=== PATIENT | male | born 1975 | race Caucasian/White ===

== ENCOUNTER 2018-12-15 00:02 | Inpatient (IN) | payer MEDICAID ==
[~2018-12-15] VITALS: Ht 170.2 cm; Wt 67.6 kg
[2018-12-15] MEDS ORDERED: ONDANSETRON HCL/PF 4 MG/2 ML VIAL ONE ×2 (00:21→01:31)
[2018-12-15] MEDS ORDERED: NALOXONE PREFILLED SYRINGE 2 MG/2 ML SYRINGE ONE (00:29)
[2018-12-15] MEDS ORDERED: LEVETIRACETAM (500MG) 1,000 MG in IV NS 0.9% 100 ML IV SCH (00:30)
[2018-12-15] MEDS ORDERED: NALOXONE HCL 0.4 MG/ML AMPUL IV ONE (00:30)
[2018-12-15] MEDS ORDERED: ONDANSETRON HCL/PF - ER 4 MG/2 ML VIAL IV ONE ×2 (00:30→01:30)
[2018-12-15 00:40] LABS: BASOPHILS # (AUTO) 0.1 /CMM (0.0-0.2); BASOPHILS % (AUTO) 1.8 % (0.0-2.0); EOSINOPHILS % (AUTO) 3.2 % (0.0-6.0); HEMATOCRIT 36 % (39-51); HEMOGLOBIN 12.9 g/dL (13.5-17.5); LYMPHOCYTES # (AUTO) 2.3 /CMM (0.8-4.8); LYMPHOCYTES % (AUTO) 27.7 % (20.0-44.0); MEAN CORPUSCULAR HGB CONC 36 g/dl (31.0-36.0); MEAN CORPUSCULAR VOLUME 95 fL (80-96); MONOCYTES # (AUTO) 0.5 /CMM (0.1-1.30); MONOCYTES % (AUTO) 5.8 % (2.0-12.0); NEUTROPHILS % (AUTO) 61.5 % (43.0-81.0); PLATELET COUNT (AUTO) 280 /CMM (150-450); RED BLOOD CELL COUNT(AUTO) 3.79 MIL/uL (4.5-6.0); WHITE BLOOD COUNT (AUTO) 8.1 K/uL (4.3-11.0)
[2018-12-15 01:03] LABS: MAGNESIUM 1.5 mg/dL (1.8-2.4)
[2018-12-15] MEDS ORDERED: LEVETIRACETAM (500MG) 500 MG/5 ML VIAL IV ONE (01:09)
[2018-12-15 01:20] LABS: CALCIUM, SERUM 8.5 mg/dL (8.5-10.1); CARBON DIOXIDE 21 mmol/L (21-32); CHLORIDE 100 mmol/L (98-107); CREATININE 0.6 mg/dL (0.6-1.3); GLUCOSE 212 mg/dL (74-106); SODIUM SERUM 137 mmol/L (136-145); UREA NITROGEN, BLOOD 8 mg/dL (7-18)
[2018-12-15 01:22] LABS: POTASSIUM 2.8 mmol/L (3.5-5.1)
[2018-12-15 01:26] LABS: ALBUMIN 3.3 g/dL (3.4-5.0); ALKALINE PHOSPHATASE 91 U/L (46-116); BILIRUBIN,DIRECT 0.1 mg/dL (0.0-0.2); BILIRUBIN,TOTAL 0.7 mg/dL (0.2-1.0); TOTAL PROTEIN, SERUM 7.4 g/dL (6.4-8.2)
[2018-12-15] MEDS ORDERED: LACTULOSE 10 G/15 ML UDC (PYXIS) GT ONE (01:30)
[2018-12-15] MEDS ORDERED: LACTULOSE 10 G/15 ML UDC (PYXIS) ONE ×2 (01:49→03:45)
--- NOTE | 2018-12-15 02:12 | NUR ---
CALLED [facility] FOR RADIOLOGY REPORT
[2018-12-15 02:24] LABS: APPEARANCE,URINE Clear (CLEAR); BILIRUBIN,URINE Negative (NEGATIVE); BLOOD, URINE Trace-intact Ery/uL (NEGATIVE); COLOR,URINE Yellow (YELLOW); KETONES,URINE Trace (NEGATIVE); LEUKOCYTE ESTERASE ,URINE Negative (NEGATIVE); NITRITE, URINE Negative (NEGATIVE); PH,URINE 7.5 (5.0-8.0); PROTEIN,URINE 100 mg/dl (NEGATIVE); UGLUCOSE 100 MG/DL mg/dL (NEGATIVE)
--- NOTE | 2018-12-15 02:28 | NUR ---
PER DR. GUNNAR FLORIAN TO USE NG TUBE.
[2018-12-15 02:48] LABS: BACTERIA,URINE None seen /HPF (None Seen); RBC,URINE 0-2 /HPF (0-2); SQUAMOUS EPITHELIAL CELL,UR Few /HPF (None Seen); WBC,URINE 0-2 /HPF (0-3)
[2018-12-15 02:52] LABS: ASPARTATE AMINOTRANSFERASE 33 U/L (15-37)
--- NOTE | 2018-12-15 02:57 | NUR ---
Joaquin arreola in [facility] - 12/15/18 at 0350 by SEGUNDO PT ASSIGNED [phone]
[2018-12-15] MEDS: Magnesium 1GM/D5W 100ML PREMIX 100 ML IV SCH ×2 (03:00→05:32)
[2018-12-15] MEDS: POTASSIUM CL. PREMIX PERIPHER. 50 ML IV SCH ×6 (03:00→10:31)
[2018-12-15 03:14] LABS: ALANINE AMINOTRANSFERASE 5 U/L (12-78)
[2018-12-15] MEDS ORDERED: POTASSIUM CL. PREMIX PERIPHER. 200 ML ONE (03:34)
[2018-12-15] MEDS ORDERED: Magnesium 1GM/D5W 100ML PREMIX 200 ML IV ONE (03:34)
[2018-12-15] MEDS ORDERED: ONDANSETRON HCL/PF 4 MG/2 ML VIAL IVP PRN (04:00)
[2018-12-15] MEDS ORDERED: ZOLPIDEM TARTRATE 5 MG TABLET PO PRN (04:00)
[2018-12-15] MEDS ORDERED: Z GUARD REMEDY 2 OZ OINT TP PRN (04:00)
--- NOTE | 2018-12-15 04:14 | NUR ---
PT TO 107
--- NOTE | 2018-12-15 04:21 | NUR ---
REPORT GIVEN TO DUNCAN DEL ROSARIO
--- NOTE | 2018-12-15 04:45 | NUR ---
TOÑA RN NOTES ADMITTED A 43Y/O MALE A/O X1 ALTERED AT THIS TIME CAME IN WITH ADM DX OF HEPATIC ENCEPHALOPATHY ,AMMONIA LEVEL 477 ALCOHOL 64 TRP -NEG PTS ON NGT TUBE FOR MEDICATION PTS IS NPO STATUS AT THIS TIME , PTS RECEIVED 2 BAGS OF MAGNESSIUM FOR MAG LEVEL; IS 1.5 , K+ IS 2.8 REPLACING TOTAL OF 6 BAGS , PTS IN ON ROOM AIR ,NO SOB NO DISTRESS NOTED , WILL CONTINUE TO MONITOR PTS.
[2018-12-15 04:59] VITALS: BP 164/100
--- NOTE | 2018-12-15 07:11 | NUR ---
TOÑA RN NOTES PTS AT THIS TIME A/O X3 ABLE TO MAKE NEEDS KNOWN WELL ENDORSE TO RN DAY SHIFT FOR CONTINUITY OF CARE.
--- NOTE | 2018-12-15 07:30 | NUR ---
TOÑA RN AM NOTES RECEIVED PT IN BED, A/O X2-3, MORE AWAKE, ABLE TO MAKE NEEDS KNOWN, ON ROOM AIR, NO SOB, SINUS TACH HR 110 ON TELE MONITOR, DENIES PAIN OR DISCOMFORT, ON NGT TUBE FOR MEDICATION, PLACEMENT CHCEKCED, NPO STATUS FOR NOW, PTS RECEIVED 4/6 BAGS OF KCL, PHARMACY TO BRING IN 2 MORE BAGS TO COMPLETE DOSE. SEE NURSING FLOWSHEET FOR SKIN ISSUES. WILL CONTINUE TO MONITOR PTS.
[2018-12-15 08:00] VITALS: BP_SYST 168; BP_SYST 173; BP_DIAS 119
[2018-12-15 08:37] LABS: BASOPHILS # (AUTO) 0.1 /CMM (0.0-0.2); BASOPHILS % (AUTO) 0.5 % (0.0-2.0); EOSINOPHILS % (AUTO) 0.4 % (0.0-6.0); HEMATOCRIT 38 % (39-51); HEMOGLOBIN 12.8 g/dL (13.5-17.5); MEAN CORPUSCULAR HGB CONC 34 g/dl (31.0-36.0); MEAN CORPUSCULAR VOLUME 95 fL (80-96); MONOCYTES # (AUTO) 1.1 /CMM (0.1-1.30); MONOCYTES % (AUTO) 7.2 % (2.0-12.0); NEUTROPHILS % (AUTO) 78.9 % (43.0-81.0); PLATELET COUNT (AUTO) 303 /CMM (150-450); RED BLOOD CELL COUNT(AUTO) 3.97 MIL/uL (4.5-6.0); WHITE BLOOD COUNT (AUTO) 15.3 K/uL (4.3-11.0)
[2018-12-15] MEDS ORDERED: PROP20TA19 PO (08:37)
[2018-12-15] MEDS ORDERED: METO25TA20 PO (08:37)
[2018-12-15] MEDS ORDERED: ASPI-1169 PO (08:37)
[2018-12-15] MEDS ORDERED: ROSU20TA32 PO (08:37)
[2018-12-15] MEDS ORDERED: THIA100T74 PO (08:37)
[2018-12-15] MEDS ORDERED: LACTULOSE 10 G/15 ML UDC (PYXIS) PO PRN (09:00)
[2018-12-15] MEDS ORDERED: IV NS 0.9% 1,000 ML BAG IV PRN (09:00)
[2018-12-15] MEDS ORDERED: LACTULOSE 10 G/15 ML UDC (PYXIS) PO ONE (09:00)
[2018-12-15 09:03] LABS: ALBUMIN 3.5 g/dL (3.4-5.0); ALKALINE PHOSPHATASE 93 U/L (46-116); BILIRUBIN,TOTAL 0.9 mg/dL (0.2-1.0); CALCIUM, SERUM 8.4 mg/dL (8.5-10.1); CARBON DIOXIDE 20 mmol/L (21-32); CHLORIDE 103 mmol/L (98-107); CREATININE 0.8 mg/dL (0.6-1.3); GLUCOSE 126 mg/dL (74-106); MAGNESIUM 2.2 mg/dL (1.8-2.4); POTASSIUM 3.2 mmol/L (3.5-5.1); SODIUM SERUM 139 mmol/L (136-145); THYROID STIMULATING HORMONE 1.525 uIU/mL (0.358-3.74); TOTAL PROTEIN, SERUM 7.7 g/dL (6.4-8.2); UREA NITROGEN, BLOOD 6 mg/dL (7-18)
[2018-12-15] MEDS: RIFAXIMIN 550 MG TABLET PO SCH ×2 (09:08→17:03)
[2018-12-15] MEDS ORDERED: IV NS 0.9% 1,000 ML IV PRN (09:30)
--- NOTE | 2018-12-15 09:30 | NUR ---
TOÑA RN NOTES DUE MEDS GIVEN. 6 BAGS OF KCL COMPETED.
[2018-12-15 10:22] LABS: ALANINE AMINOTRANSFERASE 16 U/L (12-78)
[2018-12-15 10:56] LABS: ASPARTATE AMINOTRANSFERASE 14 U/L (15-37)
--- NOTE | 2018-12-15 11:40 | NUR ---
TOÑA RN NOTES NGT REMOVED PER MD. PT STARTED ON LOW PROTEIN DIET.
[2018-12-15 12:00] VITALS: BP 149/104
[2018-12-15] MEDS: POTASSIUM CHLORIDE 20 MEQ TAB.PRT.SR PO SCH ×3 (12:07→14:11)
[2018-12-15 16:00] VITALS: BP 151/103
[2018-12-15] MEDS: LACTULOSE 10 G/15 ML UDC (PYXIS) PO SCH (17:02)
[2018-12-15] MEDS: METOPROLOL TARTRATE 25 MG TABLET PO SCH (17:03)
--- NOTE | 2018-12-15 19:28 | NUR ---
TOÑA RN CLOSING NOTES PT RESTING IN BED, A/O X2-3, MORE AWAKE, ABLE TO MAKE NEEDS KNOWN, ON ROOM AIR, NO SOB, SINUS TACH HR 110s ON TELE MONITOR, C/O HEADACHE 10/27, INFORMED FOR PAIN MEDICATIONS, RENAL DIET 60 GMS [STARTED ON LOW PROTEIN], BRP WITH ASSIST, ALL NEEDS MET FOR NOW, SAFETY MEASURES IN PLACE. BED LOW LOCKED, CALL LIGHT WITHIN REACH. WILL ENDORSE TO NEXT SHIFT FOR LISA.
[2018-12-15] MEDS ORDERED: ASPIRIN/ACETAMINOPHEN/CAFFEINE 1 EACH TABLET PO PRN (19:30)
--- NOTE | 2018-12-15 19:58 | NUR ---
RN OPENING NOTES RECEIVED REPORT FROM JIGNESH DEL ROSARIO. PATIENT A/A/O X4, ABLE TO VERBALIZE NEEDS. BREATHING EVEN & UNLABORED, TOLERATING ROOM AIR. DENIES ANY SOB OR DIFFICULTY BREATHING. ON TELE W/ SINUS RHYTHM. RIGHT FOREARM IV #20 & LEFT HAND IV #18 INTACT & PATENT W/ DRESSING CDI, SALINE LOCKED. C/O HEADACHE, PAIN MED TO BE GIVEN. ABLE TO AMBULATE INDEPENDENTLY. SAFETY MEASURES IN PLACE W/ SIDE RAILS UP & BED LOCKED IN LOWEST POSITION. CALL LIGHT PLACED WITHIN REACH & INSTRUCTED TO CALL FOR ASSISTANCE. WILL CONTINUE TO MONITOR.
[2018-12-15 20:00] VITALS: BP 158/94
[2018-12-15] MEDS: IBUPROFEN 200 MG TABLET PO PRN (21:28)
[2018-12-15] MEDS ORDERED: ATORVASTATIN 40 MG TABLET PO SCH (22:00)
--- NOTE | 2018-12-15 22:00 | NUR ---
TOÑA RN NOTES IV IN LEFT HAND REMOVED D/T PATIENT C/O PAIN WHEN FLUSHING. MINIMAL BLEEDING NOTED UPON REMOVAL.
[2018-12-16] VITALS: BP 145/92
[2018-12-16] MEDS: LACTULOSE 10 G/15 ML UDC (PYXIS) PO SCH ×3 (00:58→12:30)
[2018-12-16 04:00] VITALS: BP 126/76
[2018-12-16] MEDS: IBUPROFEN 200 MG TABLET PO PRN (04:22)
[2018-12-16 07:11] LABS: BASOPHILS # (AUTO) 0.1 /CMM (0.0-0.2); EOSINOPHILS % (AUTO) 2.3 % (0.0-6.0); HEMATOCRIT 33 % (39-51); HEMOGLOBIN 11.4 g/dL (13.5-17.5); LYMPHOCYTES # (AUTO) 2.2 /CMM (0.8-4.8); MEAN CORPUSCULAR HGB CONC 35 g/dl (31.0-36.0); MEAN CORPUSCULAR VOLUME 96 fL (80-96); MONOCYTES # (AUTO) 0.7 /CMM (0.1-1.30); MONOCYTES % (AUTO) 8.4 % (2.0-12.0); NEUTROPHILS % (AUTO) 61.3 % (43.0-81.0); PLATELET COUNT (AUTO) 222 /CMM (150-450); RED BLOOD CELL COUNT(AUTO) 3.39 MIL/uL (4.5-6.0); WHITE BLOOD COUNT (AUTO) 8.1 K/uL (4.3-11.0)
--- NOTE | 2018-12-16 07:30 | NUR ---
TOÑA RN AM NOTES RECEIVED PT IN BED, A/O X2-3, MORE AWAKE, ABLE TO MAKE NEEDS KNOWN, ON ROOM AIR, NO SOB, SINUS RHYTHM 80s ON TELE MONITOR, DENIES PAIN OR DISCOMFORT, AMBULATE, ON LOW PROTEIN DIET. BED LOW LOCKED. CALL LIGHT WITHIN REACH. POC OF CARE DISCUSSED WITH PATIENT. WILL CONTINUE TO MONITOR PTS.
[2018-12-16 07:52] LABS: BILIRUBIN,TOTAL 1.3 mg/dL (0.2-1.0); CALCIUM, SERUM 7.9 mg/dL (8.5-10.1); MAGNESIUM 1.8 mg/dL (1.8-2.4); PHOSPHORUS 2.8 mg/dL (2.5-4.9)
[2018-12-16 08:00] VITALS: BP 129/92
[2018-12-16 08:11] LABS: POTASSIUM 2.6 mmol/L (3.5-5.1)
--- NOTE | 2018-12-16 08:19 | NUR ---
TOÑA RN NOTES K LEVEL 2.6. DR. STAFFORD NOTIFIED.
[2018-12-16] MEDS ORDERED: ASPIRIN 81 MG TAB.CHEW PO SCH (09:00)
[2018-12-16] MEDS ORDERED: POTASSIUM CHLORIDE 20 MEQ TAB.PRT.SR PO ONE ×2 (09:00→12:00)
[2018-12-16] MEDS ORDERED: THIAMINE HCL 100 MG TABLET PO SCH (09:00)
[2018-12-16] MEDS: METOPROLOL TARTRATE 25 MG TABLET PO SCH (09:04)
[2018-12-16] MEDS: RIFAXIMIN 550 MG TABLET PO SCH (09:04)
--- NOTE | 2018-12-16 09:30 | NUR ---
RN NOTES DUE MEDS GIVEN
[2018-12-16 12:00] VITALS: BP 140/94
[2018-12-16] MEDS ORDERED: LACT10SO6 PO (13:04)
[2018-12-16] MEDS ORDERED: RIFA550T PO (13:22)
--- NOTE | 2018-12-16 14:38 | NUR ---
RN NOTES PATIENT DISCHARGED TO HOME TODAY PER MD IN STABLE CONDITION, PROVIDED DC INSTRUCTIONS, MED RECON LIST/PRESCRIPTION AND HEALTH TEACHINGS, PATIENT TO FOLLOW UP WITH PCP IN 1-2 WEEKS AND WILL MAKE OWN APPOINTMENT. IV ACCESS REMOVED, NO BLEEDING AND DRESSINGS IN PLACE. CHECKED ALL BELONGINGS, RETURNED. ALL PAPER WORKS SIGNED. PATIENT AMBULATED TO [facility] AND WILL TAKE UBER/LYFT TO GO HOME. Addendum: 12/16/18 at 1456 by JIGNESH MORGAN RN ADDENDUM: PATIENT REFUSED TO HAVE PICTURES OF SKIN ISSUES TAKEN AT THIS TIME.
[2018-12-17] MEDS ORDERED: PROPRANOLOL HCL 10 MG TABLET PO SCH (09:00)
== END 2018-12-16 14:38 | disposition home or self-care (01) | DRG 280 ==
LOC: ER 00:07 → UNDOADMIN 03:19 → TELE 03:19 → TELE-TD 04:21
PROVIDERS: ADMIT Nurse Practitioner Acute Care; ATTEND Student in an Organized Health Care Education/Training Program
DX: K70.40 Alcoholic hepatic failure without coma (principal); K70.30 Alcoholic cirrhosis of liver without ascites; E83.42 Hypomagnesemia; I10 Essential (primary) hypertension; F10.20 Alcohol dependence, uncomplicated; Y90.9 Presence of alcohol in blood, level not specified; R55 Syncope and collapse; R73.9 Hyperglycemia, unspecified; Y90.3 Blood alcohol level of 60-79 mg/100 ml; E87.6 Hypokalemia
CPT/HCPCS: 36415; 70450-TC; 71045-TC; 76700-TC; 80048-TC; 80053-TC; 80061-TC; 80076-TC; 80305; 81000-TC; 82140-TC; 82550-TC; 83605-TC; 83735-TC; 84100-TC; 84443-TC; 84484-TC; 85025-TC; 85730-TC; 87040-TC; 87081-TC; 87086-TC; 93307-TC; G0378; G0480; J1953; J2310; J2405; J3475; J3480; J7030

== ENCOUNTER 2019-03-12 02:09 | Emergency (ER) | payer MEDICAID ==
[~2019-03-12] VITALS: Ht 165.1 cm; Wt 75.3 kg
[~2019-03-12 02:09] MED LIST: ASPI-1169 PO; LACT10SO6 PO; METO25TA20 PO; PROP20TA19 PO; RIFA550T PO; ROSU20TA32 PO; THIA100T74 PO
--- NOTE | 2019-03-12 02:10 | NUR ---
CAMMIE FROM HOME TO ER BED 9. SLEEPING. NO RESP DISTRESS NOTED, BREATHING EVEN AND UNLABORED. BROUGHT IN FOR ALTERED MENTAL STATUS. CALLED CREDIT CONTROL ASSISTANT. UNABLE TO GET FURTHER INFORMATION FROM PT DT CURRENT CONDITION. BS ON SCEE 144. MD AT BEDSIDE FOR EVAL. PT ALREADY HAVE A LINE ON R AC 18G. WITH NS RUNNING PT RECEIVED ABOUT 400ML OF NS. WILL CONTINUE TO MONITOR
[2019-03-12 02:30] LABS: BASOPHILS # (AUTO) 0.2 /CMM (0.0-0.2); EOSINOPHILS % (AUTO) 5.3 % (0.0-6.0); HEMATOCRIT 37 % (39-51); HEMOGLOBIN 13.3 g/dL (13.5-17.5); LYMPHOCYTES # (AUTO) 1.4 /CMM (0.8-4.8); LYMPHOCYTES % (AUTO) 26.8 % (20.0-44.0); MEAN CORPUSCULAR HGB CONC 36 g/dl (31.0-36.0); MEAN CORPUSCULAR VOLUME 94 fL (80-96); MONOCYTES # (AUTO) 1.9 /CMM (0.1-1.30); MONOCYTES % (AUTO) 34.6 % (2.0-12.0); NEUTROPHILS # (AUTO) 1.6 /CMM (1.8-8.9); NEUTROPHILS % (AUTO) 30.3 % (43.0-81.0); PLATELET COUNT (AUTO) 199 /CMM (150-450); RED BLOOD CELL COUNT(AUTO) 3.88 MIL/uL (4.5-6.0); WHITE BLOOD COUNT (AUTO) 5.4 K/uL (4.3-11.0)
[2019-03-12] MEDS ORDERED: IV NS 0.9% 1,000 ML BAG IV ONE (02:30)
--- NOTE | 2019-03-12 02:37 | NUR ---
PT TO CT ON JIL
[2019-03-12 02:38] LABS: SERUM AMMONIA 30 umol/L (11-32)
[2019-03-12 02:43] LABS: ALBUMIN 2.8 g/dL (3.4-5.0); ALCOHOL, BLOOD 37 mg/dL (0-0); ALKALINE PHOSPHATASE 77 U/L (46-116); BILIRUBIN,TOTAL 0.9 mg/dL (0.2-1.0); CARBON DIOXIDE 21 mmol/L (21-32); CHLORIDE 100 mmol/L (98-107); GLUCOSE 204 mg/dL (74-106); POTASSIUM 3.4 mmol/L (3.5-5.1); SODIUM SERUM 136 mmol/L (136-145); UREA NITROGEN, BLOOD 6 mg/dL (7-18)
[2019-03-12 02:46] LABS: ACETAMINOPHEN 0 ug/ml (10-30); SALICYLATE 1.7 mg/dL (2.8-20.0)
[2019-03-12 02:51] LABS: THYROID STIMULATING HORMONE 1.515 uIU/mL (0.358-3.74)
[2019-03-12 03:55] LABS: CREATININE 0.7 mg/dL (0.6-1.3); TOTAL PROTEIN, SERUM 7.3 g/dL (6.4-8.2)
--- NOTE | 2019-03-12 04:13 | NUR ---
URINE COLLECTED FROM PT AND SENT TO STAT LAB
[2019-03-12] MEDS ORDERED: CLONIDINE HCL 0.1 MG TABLET ONE (05:38)
--- NOTE | 2019-03-12 05:43 | NUR ---
pt noted w/ bp 172/111. md made aware. received verbal order to give clonidine 0.1mg x 1 dose. noted and carried out
--- NOTE | 2019-03-12 05:49 | NUR ---
spoke with ancelmo, pt's , for knot picker cloth. is coming in 30min
[2019-03-12] MEDS ORDERED: CLONIDINE HCL 0.1 MG TABLET PO ONE (06:00)
--- NOTE | 2019-03-12 06:13 | NUR ---
AT BEDSIDE FOR TELESCOPE REPAIRER
--- NOTE | 2019-03-12 06:14 | NUR ---
Patient discharged to home in stable condition. Written and verbal after care instructions given. Patient verbalizes understanding of instruction. Pt ambulatory with a steady gait
[2019-03-12 06:16] VITALS: BP 165/110
[2019-03-12 06:24] LABS: ALANINE AMINOTRANSFERASE 28 U/L (12-78); ASPARTATE AMINOTRANSFERASE 32 U/L (15-37)
== END 2019-03-12 06:17 | disposition home or self-care (01) ==
LOC: ER 02:11
DX: R41.82 Altered mental status, unspecified (principal); F10.20 Alcohol dependence, uncomplicated; Y90.1 Blood alcohol level of 20-39 mg/100 ml; Z79.82 Long term (current) use of aspirin; Z79.899 Other long term (current) drug therapy
CPT/HCPCS: 36415; 70450; 71045; 80048; 80076; 80305; 80307; 80329; 82140; 84443; 84484; 85025; 93005; 96360; 99284; G0480; J7030

== ENCOUNTER 2019-05-24 02:25 | Inpatient (IN) | payer MEDICAID ==
[~2019-05-24] VITALS: Ht 165.1 cm; Wt 76.2 kg
[2019-05-24] MEDS ORDERED: IV D5/ 0.9% NACL 1,000 ML IV ONE (02:31)
[2019-05-24 02:51] LABS: BASOPHILS # (AUTO) 0.2 /CMM (0.0-0.2); BASOPHILS % (AUTO) 3.1 % (0.0-2.0); HEMATOCRIT 38 % (39-51); HEMOGLOBIN 12.9 g/dL (13.5-17.5); LYMPHOCYTES # (AUTO) 2.5 /CMM (0.8-4.8); LYMPHOCYTES % (AUTO) 50.1 % (20.0-44.0); MEAN CORPUSCULAR HGB CONC 34 g/dl (31.0-36.0); MEAN CORPUSCULAR VOLUME 97 fL (80-96); MONOCYTES # (AUTO) 0.4 /CMM (0.1-1.30); MONOCYTES % (AUTO) 8.4 % (2.0-12.0); NEUTROPHILS # (AUTO) 1.7 /CMM (1.8-8.9); NEUTROPHILS % (AUTO) 34.4 % (43.0-81.0); PLATELET COUNT (AUTO) 278 /CMM (150-450); RED BLOOD CELL COUNT(AUTO) 3.95 MIL/uL (4.5-6.0)
--- NOTE | 2019-05-24 03:30 | NUR ---
CAMMIE FROM HOME TO ER 12. DIFFICULT TO AROUSE EVEN WITH TACTILE STIMULI. BROUGHT IN FOR ALCOHOL INTOXICATION. PT SMELLS OF ALCOHOL. MD AT BEDSIDE FOR EVAL. ORDERS RECEIVED NOTED AND CARRIED OUT. PT ARRIVE W/ AN IV LINE ON L AC 20G. BLOOD DRAWN AND GIVEN TO NUT PROCESSING SUPERVISOR.
[2019-05-24 04:12] LABS: ALBUMIN 3.5 g/dL (3.4-5.0); BILIRUBIN,DIRECT 0.1 mg/dL (0.0-0.2); BILIRUBIN,TOTAL 0.5 mg/dL (0.2-1.0); CALCIUM, SERUM 8.9 mg/dL (8.5-10.1); CREATININE 0.8 mg/dL (0.6-1.3); POTASSIUM 3.4 mmol/L (3.5-5.1); TOTAL PROTEIN, SERUM 7.7 g/dL (6.4-8.2)
[2019-05-24 04:20] LABS: SALICYLATE 0.9 mg/dL (2.8-20.0)
[2019-05-24] MEDS ORDERED: LACTULOSE 10 G/15 ML UDC (PYXIS) PO ONE (04:30)
--- NOTE | 2019-05-24 05:33 | NUR ---
ER TALKING TO DR. ESPINOZA REGARDING PT ADMISSION.
--- NOTE | 2019-05-24 05:34 | NUR ---
REPORT HALEY TO M/S MIGUEL ÁNGEL DON.
--- NOTE | 2019-05-24 05:59 | NUR ---
REPORT CALLED TO LOCKSTITCH BINDERMIGUEL ÁNGEL ROMAN. WILL TRANSPORT PT VIA ACLS PROTOCOL.
--- NOTE | 2019-05-24 06:20 | NUR ---
SODA FOUNTAIN OPERATOR NOTES PATIENT ARRIVED TO THE UNIT VIA ACLS PROTOCOLS. UNABLE TO ASSESS A/O DUE TO PATIENT SLEEPING AND EYE OPENING RESPONSE TO TOUCH. PATIENT'S VITAL SIGNS STABLE. PATIENT PLACED ON 2 L NASAL CANNULA, NO SIGNS OF RESPIRATORY DISTRESS PRESENT. SAFETY PRECAUTIONS IN PLACE WITH BED IN THE LOWEST POSITION, BED LOCKED, BILATERAL SIDE-RAILS UP, BED ALARM ON, AND BILATERAL SIDE RAILS UP. WILL CONTINUE TO MONITOR PATIENT.
--- NOTE | 2019-05-24 06:27 | NUR ---
PT TRANSPORTED TO UNIT ON GURNEY WITH EMT AND RN AT BEDSIDE W/ ACLS PROTOCOL. NAD NOTED DURING TRANSPORT
--- NOTE | 2019-05-24 07:32 | NUR ---
MS RN NOTES RECEIVED PATIENT IN BED, ASLEEP. LITTLE REPORT GIVEN BY MEAT COUNTER WORKER NURSE ON THIS NEW ADMIT. PATIENT ON OXYGEN THERAPY AT 2 LPM, BREATHING EVEN AND UNLABORED AT THIS TIME. NO SIGNS OF PAIN SUCH FACIAL GRIMACING OR MOANING. LAC GAUGE # 20 PRESENT AND INTACT. SAFETY PRECAUTIONS IN PLACE; BED IN LOW POSITION AND LOCKED, RAILS UP X2, CALL LIGHT WITHIN REACH. WILL CONTINUE TO MONITOR PATIENT.
[2019-05-24 08:00] VITALS: BP 121/76
[2019-05-24] MEDS ORDERED: POTASSIUM CHLORIDE 10 MEQ/50 ML PREMIXED IVPB FOR PERIPHERAL LINE IV ONE (09:00)
[2019-05-24] MEDS ORDERED: LORAZEPAM INJ 2 MG/ML VIAL IV PRN (09:00)
[2019-05-24] MEDS ORDERED: Thiamine 100 MG in IV D5W 50 ML IV SCH (09:00)
[2019-05-24] MEDS ORDERED: LACTULOSE 10 G/15 ML UDC (PYXIS) PO SCH (09:00)
[2019-05-24] MEDS: Potassium Chloride 20 MEQ in IV D5/0.45 NACL 1,000 ML IV PRN (09:29)
[2019-05-24] MEDS: ATORVASTATIN 40 MG TABLET PO SCH (09:51)
[2019-05-24] MEDS: RIFAXIMIN 550 MG TABLET PO SCH ×2 (09:51→16:10)
[2019-05-24] MEDS: PROPRANOLOL HCL 10 MG TABLET PO SCH (09:52)
[2019-05-24] MEDS: ASPIRIN 81 MG TAB.CHEW PO SCH (09:52)
[2019-05-24] MEDS: ENOXAPARIN SODIUM 30 MG/0.3 ML DISP.SYRIN SQ SCH (09:53)
[2019-05-24] MEDS ORDERED: Folic acid 1 MG in IV D5W 50 ML IV SCH (10:00)
[2019-05-24] MEDS: CEFTRIAXONE 1 G in IV D5W 50 ML IV SCH (11:24)
[2019-05-24] MEDS: LACTULOSE 10 G/15 ML UDC (PYXIS) PO SCH ×3 (11:45→23:20)
[2019-05-24] MEDS: POTASSIUM CL. PREMIX PERIPHER. 50 ML IV SCH ×2 (12:16→13:45)
--- NOTE | 2019-05-24 15:28 | NUR ---
LUIS met with pt's Duyen who requested for LUIS to fax clinicals to [facility] since she wants the pt to go directly there once discharged from [facility]. LUIS faxed clinicals to [facility] at . LUIS also updated pt's regarding faxing the requested information.
[2019-05-24 16:00] VITALS: BP 144/96
--- NOTE | 2019-05-24 16:28 | NUR ---
DISHWASHING MACHINE REPAIRER received a call from Shraddha at [facility] requesting for Hospital Screening form be completed. DISHWASHING MACHINE REPAIRER received the form and gave it to CRN Consuelo to have pt' s RN complete and fax.
--- NOTE | 2019-05-24 18:51 | NUR ---
MS RN CLOSING NOTES PATIENT IN BED AT THIS TIME, AWAKE, A/O X3 AND WATCHING TV. IN GOOD DISPOSITION. PATIENT REMOVED HIS NASAL CANNULA STATING HE FEEL OK WITHOUT OXYGEN. SATURATING WELL ON ROOM AIR 96%. PATIENT DENIES ANY PAIN. LAC GAUGE # 20 PRESENT AND INTACT. AMBULATORY AND ABLE TO USE THE BATHROOM INDEPENDENTLY. SAFETY PRECAUTIONS IN PLACE; BED IN LOW POSITION AND LOCKED, RAILS UP X2, CALL LIGHT WITHIN REACH. WILL ENDORSE TO PRINCIPAL TECHNICAL ARCHITECT NURSE.
--- NOTE | 2019-05-24 19:10 | NUR ---
RN medsurg opening notes Received Pt from morning nurse. Pt is sitting in bed comfortably. Pt is alert and orientedX3. Respiration is normal in room air. No SOB. No S/S of distress noted. IV sites at LAc# 20 is clean, intact, patent and SL. Informed Pt that we need to collect UA. Pt verbalized understanding. Pt able to ambulate with steady gait. Safety precautions is maintained. Bed at low position, brakes locked, side rails upX2 and call light is within reach. Will continue to monitor.
[2019-05-24 20:00] VITALS: BP 131/95
[2019-05-24 20:30] VITALS: BP 131/95
[2019-05-24 20:31] LABS: APPEARANCE,URINE CLEAR (CLEAR); BILIRUBIN,URINE NEGATIVE (NEGATIVE); BLOOD, URINE SMALL Ery/uL (NEGATIVE); COLOR,URINE YELLOW (YELLOW); KETONES,URINE NEGATIVE (NEGATIVE); LEUKOCYTE ESTERASE ,URINE NEGATIVE (NEGATIVE); NITRITE, URINE NEGATIVE (NEGATIVE); PROTEIN,URINE NEGATIVE (NEGATIVE); UGLUCOSE NEGATIVE (NEGATIVE); UROBILINOGEN,URINE 0.2 EU/dL (0.2)
--- NOTE | 2019-05-24 20:34 | NUR ---
Patient primary language is Croatian. He is alert, has hx of alcohol abuse. He lives locally with his & family. He is ambulatory and independent with adl's. Patient requesting [facility] plan [facility] at . building construction ironworker sent referral and awaiting acceptance. Addendum: 05/24/19 at 2034 by NANCY LIVINGSTON RN Amended: Links added.
[2019-05-24 22:30] VITALS: BP 141/91
--- NOTE | 2019-05-24 22:38 | NUR ---
RN medsurg notes Pt is feeling anxious and requesting ativan. Administered ativan 1 mg as ordered for anxiety. Safety precautions is maintained. VS is stable. Will continue to monitor.
[2019-05-25] MEDS: LACTULOSE 10 G/15 ML UDC (PYXIS) PO SCH (06:09)
--- NOTE | 2019-05-25 06:40 | NUR ---
RN medsurg closing notes Pt is resting in bed comfortably. Pt is alert and orientedX3. Respiration is normal. No SOB. No S/S of distress noted. VS is stable. IV sites at LAC# 20 is clean, intact and SL. Routine meds were given as ordered. Kept Pt clean, dry and comfortable. All needs met and attended. Safety precautions is maintained. Bed at low position, brakes locked, side rails upX2 and call light is within reach. Will endorse to morning nurse for LISA.
[2019-05-25 07:23] LABS: BASOPHILS # (AUTO) 0.1 /CMM (0.0-0.2); BASOPHILS % (AUTO) 2.4 % (0.0-2.0); EOSINOPHILS % (AUTO) 3.3 % (0.0-6.0); HEMATOCRIT 33 % (39-51); HEMOGLOBIN 11.4 g/dL (13.5-17.5); LYMPHOCYTES # (AUTO) 2.2 /CMM (0.8-4.8); LYMPHOCYTES % (AUTO) 35.9 % (20.0-44.0); MEAN CORPUSCULAR HGB CONC 35 g/dl (31.0-36.0); MEAN CORPUSCULAR VOLUME 98 fL (80-96); MONOCYTES # (AUTO) 0.5 /CMM (0.1-1.30); MONOCYTES % (AUTO) 7.5 % (2.0-12.0); NEUTROPHILS # (AUTO) 3.1 /CMM (1.8-8.9); NEUTROPHILS % (AUTO) 50.9 % (43.0-81.0); PLATELET COUNT (AUTO) 229 /CMM (150-450); RED BLOOD CELL COUNT(AUTO) 3.38 MIL/uL (4.5-6.0)
[2019-05-25 08:00] VITALS: BP_SYST 117; BP_SYST 167; BP_DIAS 68; BP_DIAS 95
[2019-05-25 08:10] LABS: ALBUMIN 3.1 g/dL (3.4-5.0); BILIRUBIN,TOTAL 0.4 mg/dL (0.2-1.0); CALCIUM, SERUM 8.2 mg/dL (8.5-10.1); MAGNESIUM 1.7 mg/dL (1.8-2.4); TOTAL PROTEIN, SERUM 6.7 g/dL (6.4-8.2)
[2019-05-25 08:13] LABS: POTASSIUM 2.8 mmol/L (3.5-5.1)
[2019-05-25] MEDS: Potassium Chloride 20 MEQ in IV D5/0.45 NACL 1,000 ML IV PRN (08:28)
[2019-05-25 08:29] VITALS: BP 117/68
[2019-05-25] MEDS: RIFAXIMIN 550 MG TABLET PO SCH (08:29)
[2019-05-25] MEDS: ASPIRIN 81 MG TAB.CHEW PO SCH (08:29)
[2019-05-25] MEDS: PROPRANOLOL HCL 10 MG TABLET PO SCH (08:29)
[2019-05-25] MEDS: ATORVASTATIN 40 MG TABLET PO SCH (08:29)
[2019-05-25] MEDS: ENOXAPARIN SODIUM 30 MG/0.3 ML DISP.SYRIN SQ SCH (08:33)
[2019-05-25] MEDS ORDERED: THIAMINE HCL 100 MG TABLET PO SCH (09:00)
[2019-05-25] MEDS ORDERED: FOLIC ACID 1 MG TABLET PO SCH (09:00)
[2019-05-25] MEDS ORDERED: POTASSIUM CHLORIDE 20 MEQ TAB.PRT.SR PO ONE (09:30)
[2019-05-25] MEDS ORDERED: FENO48TA PO (09:33)
[2019-05-25] MEDS: Magnesium 1GM/D5W 100ML PREMIX 100 ML IV SCH ×3 (09:51→12:17)
[2019-05-25] MEDS ORDERED: Fenofibrate 48 MG TABLET PO SCH (10:00)
[2019-05-25] MEDS ORDERED: POTASSIUM CHLORIDE 20 MEQ TAB.PRT.SR PO SCH (10:00)
[2019-05-25] MEDS: CEFTRIAXONE 1 G in IV D5W 50 ML IV SCH (10:49)
[2019-05-25] MEDS ORDERED: LACTULOSE 10 G/15 ML UDC (PYXIS) PO SCH (14:00)
--- NOTE | 2019-05-25 16:30 | NUR ---
PAtient cleared for d/c to home by MD. Patient awake , alert and oriented x3, breathin g unlabored and even on room air , VS are stable and within base line. Skin intact. All needs attended prior to d/c. Patient received d/c instructions and educated on new prescribed med. Patient verbalized understanding and will f/u with PCP in one week . IV line removed. ID wrist band removed. Patient picked up by .
== END 2019-05-25 16:30 | disposition home or self-care (01) | DRG 280 ==
LOC: ER 02:27 → TELE2 05:14 → TELE 05:48 → MED 08:29
PROVIDERS: ADMIT Internal Medicine; ATTEND Internal Medicine
DX: K70.40 Alcoholic hepatic failure without coma (principal); E83.42 Hypomagnesemia; E87.6 Hypokalemia; I10 Essential (primary) hypertension; K74.60 Unspecified cirrhosis of liver; F17.210 Nicotine dependence, cigarettes, uncomplicated; F10.239 Alcohol dependence with withdrawal, unspecified; E78.5 Hyperlipidemia, unspecified; E78.1 Pure hyperglyceridemia; Y90.3 Blood alcohol level of 60-79 mg/100 ml; E78.00 Pure hypercholesterolemia, unspecified; Z79.82 Long term (current) use of aspirin; R40.2413 Glasgow coma scale score 13-15, at hospital admission
CPT/HCPCS: 36415; 70450-TC; 80048-TC; 80053-TC; 80061-TC; 80076-TC; 81000-TC; 82140-TC; 83735-TC; 85025-TC; 85610-TC; 87081-TC; G0378; G0480; J0696; J1650; J2060; J3411; J3475; J3480; J3490; J7040; J7042; J7060

== ENCOUNTER 2019-05-29 23:08 | Inpatient (IN) | payer MEDICAID ==
[~2019-05-29] VITALS: Ht 165.1 cm; Wt 70.8 kg
[~2019-05-29 23:08] MED LIST changes: +FENO48TA PO; -METO25TA20 PO
--- NOTE | 2019-05-29 23:16 | NUR ---
BIBRA FOR ETOH. PER strategic solutions consultant CALLED 911 DUE TO AMS AND RECURRENT ALCOHOL USE. PT A, OX3 HOWEVER DENIED USING ALCOHOL. PT WAS TRANSFERRED TO THE BED . PLACED ON A MONITOR . VSS. DENIED ANY PAIN OR DISCOMFORT AT THIS TIME
[2019-05-29 23:33] LABS: BASOPHILS # (AUTO) 0.1 /CMM (0.0-0.2); BASOPHILS % (AUTO) 1.1 % (0.0-2.0); EOSINOPHILS % (AUTO) 2.1 % (0.0-6.0); HEMATOCRIT 37 % (39-51); HEMOGLOBIN 12.9 g/dL (13.5-17.5); LYMPHOCYTES # (AUTO) 2.3 /CMM (0.8-4.8); MEAN CORPUSCULAR HGB CONC 35 g/dl (31.0-36.0); MEAN CORPUSCULAR VOLUME 96 fL (80-96); MONOCYTES # (AUTO) 0.4 /CMM (0.1-1.30); MONOCYTES % (AUTO) 6.3 % (2.0-12.0); NEUTROPHILS # (AUTO) 3.1 /CMM (1.8-8.9); NEUTROPHILS % (AUTO) 52.5 % (43.0-81.0); PLATELET COUNT (AUTO) 306 /CMM (150-450); RED BLOOD CELL COUNT(AUTO) 3.83 MIL/uL (4.5-6.0)
[2019-05-29 23:46] LABS: ALBUMIN 3.6 g/dL (3.4-5.0); BILIRUBIN,TOTAL 0.6 mg/dL (0.2-1.0); CREATININE 0.8 mg/dL (0.6-1.3); POTASSIUM 3.6 mmol/L (3.5-5.1); TOTAL PROTEIN, SERUM 7.9 g/dL (6.4-8.2)
[2019-05-30] MEDS ORDERED: LACTULOSE 10 G/15 ML UDC (PYXIS) PO ONE
[2019-05-30] MEDS ORDERED: LACTULOSE 10 G/15 ML UDC (PYXIS) ONE (00:05)
--- NOTE | 2019-05-30 00:33 | NUR ---
Patient is resting comfortably in bed. Easily aroused. VSS.
--- NOTE | 2019-05-30 00:57 | NUR ---
ER TALKING TO DR. ESPINOZA REGARDING PT ADMISSION.
--- NOTE | 2019-05-30 01:52 | NUR ---
REPORT GIVEN TO SCOTTIE DEL ROSARIO FOR LISA.
[2019-05-30 02:03] VITALS: BP 160/110
[2019-05-30 02:05] VITALS: BP 160/110
--- NOTE | 2019-05-30 02:05 | NUR ---
ADMISSION NOTE PATIENT ADMITTED TO DR. ESPINOZA FOR HEPATIC ENCEPHALOPATHY. NEW ORDERS RECIEVED PT ADMITTED TO TELE/OBS RM 320 BED 2. PATIENT ALERT AND ORIENTED X4. PATIENT STATES HE WANTS TO LEAVE AMA BECAUSE HE HAS REHAB APPOINTMENT TO [facility] TOMOR[facility] AT 10 AM AND HE HAS TO BE THERE. AT 0215 CALL MADE TO [facility] SPOKE WITH HER AND UPDATED HER ON POC. SHE SPOKE TO PATIENT AND CONVINCED HIM TO STAY AND NOT LEAVE AMA. PATIENT WILL NOW STAY TILL MORNING BUT PATIENT AND ARE HOPING FOR AN EARLY DISCHARGE TO MAKE HIS APPOINTMENT AT REHAB FACILITY AT 10 AM TOMORROW. PATIENT ORIENTED TO ROOM. CALL LIGHT MADE PLACED IN REACH. BED DOWN LOCKED SRX2 PATIENT LAYED DOWN IN SEMIFOWLERS POSITION AND VERBALIZED UNDERSTANDING TO CALL FOR ASSISTANCE IF NEEDED.
[2019-05-30] MEDS ORDERED: HYDROCODONE/APAP 5/325MG 1 EACH TABLET PO PRN (02:30)
[2019-05-30] MEDS ORDERED: LORAZEPAM 1 MG TABLET PO PRN ×2 (02:30)
[2019-05-30] MEDS ORDERED: IV D5/ 0.9% NACL 1,000 ML IV SCH (02:30)
[2019-05-30] MEDS ORDERED: ACETAMINOPHEN 325 MG TABLET PO PRN (02:30)
[2019-05-30 04:00] VITALS: BP 117/76
[2019-05-30 06:26] LABS: BASOPHILS # (AUTO) 0.1 /CMM (0.0-0.2); BASOPHILS % (AUTO) 2.6 % (0.0-2.0); EOSINOPHILS % (AUTO) 3.2 % (0.0-6.0); HEMATOCRIT 34 % (39-51); HEMOGLOBIN 11.9 g/dL (13.5-17.5); LYMPHOCYTES # (AUTO) 2.6 /CMM (0.8-4.8); LYMPHOCYTES % (AUTO) 48.3 % (20.0-44.0); MEAN CORPUSCULAR HGB CONC 35 g/dl (31.0-36.0); MEAN CORPUSCULAR VOLUME 96 fL (80-96); MONOCYTES # (AUTO) 0.6 /CMM (0.1-1.30); MONOCYTES % (AUTO) 10.4 % (2.0-12.0); NEUTROPHILS # (AUTO) 1.9 /CMM (1.8-8.9); NEUTROPHILS % (AUTO) 35.5 % (43.0-81.0); PLATELET COUNT (AUTO) 263 /CMM (150-450); RED BLOOD CELL COUNT(AUTO) 3.56 MIL/uL (4.5-6.0); WHITE BLOOD COUNT (AUTO) 5.4 K/uL (4.3-11.0)
[2019-05-30 06:45] LABS: ALBUMIN 3.2 g/dL (3.4-5.0); BILIRUBIN,TOTAL 0.5 mg/dL (0.2-1.0); CALCIUM, SERUM 8.2 mg/dL (8.5-10.1); CREATININE 0.8 mg/dL (0.6-1.3); MAGNESIUM 1.5 mg/dL (1.8-2.4); POTASSIUM 3.2 mmol/L (3.5-5.1); TOTAL PROTEIN, SERUM 7.2 g/dL (6.4-8.2)
--- NOTE | 2019-05-30 07:30 | NUR ---
RN NOTES RECEIVED PATIENT IN BED RESTING COMFORTABLY IN MODERATE HIGH BACK REST. A/O X4, ON RA, TOLERATING WELL. NO SIGNS OF DISTRESS NOTED AT THIS TIME. ON TELE MONITORING WITH CURRENT READING OF ST. IV FLUIDS ON RFA #20 WITH D5NS RUNNING @75ML/HR. PATENT AND INTACT. SAFETY MEASURES IN PLACE, BED IN LOWEST LOCKED POSITION WITH SIDE RAILS UP X 2. CALL LIGHT WITHIN EASY REACH. WILL CONTINUE TO MONITOR.
--- NOTE | 2019-05-30 07:50 | NUR ---
ATTEMPTED TO CALL DR. ESPINOZA [phone] . AT [facility] TO INFORM PATIENT REQUESTING DISCHARGE BEFORE 9AM. PLACED ON HOLD FOR 10 MINS ENDORSED TO DAY SHIFT NURSE EHSAN.
[2019-05-30 08:00] VITALS: BP 131/88
[2019-05-30] MEDS ORDERED: IV D5/ 0.9% NACL 1,000 ML IV PRN (08:09)
[2019-05-30] MEDS ORDERED: THIAMINE HCL 100 MG TABLET PO SCH (09:00)
[2019-05-30] MEDS ORDERED: FOLIC ACID 1 MG TABLET PO SCH (09:00)
[2019-05-30] MEDS ORDERED: POTASSIUM CHLORIDE 20 MEQ TAB.PRT.SR PO ONE (09:00)
[2019-05-30] MEDS ORDERED: LACTULOSE 10 G/15 ML UDC (PYXIS) PO SCH (09:00)
[2019-05-30] MEDS ORDERED: ASPIRIN 81 MG TAB.CHEW PO SCH (09:00)
[2019-05-30] MEDS ORDERED: ATORVASTATIN 40 MG TABLET PO SCH (09:00)
[2019-05-30] MEDS ORDERED: PROPRANOLOL HCL 10 MG TABLET PO SCH (09:00)
[2019-05-30 09:04] VITALS: BP 131/88
--- NOTE | 2019-05-30 09:30 | NUR ---
RN DISCHARGED NOTES PATIENT DISCHARGED IN STABLE CONDITION. A/OX 4. ABLE TO MAKE NEEDS KNOWN. V/S TAKEN, STABLE AND RECORDED. PATIENT'S IV REMOVED AND APPLIED PRESSURE DRESSINGS. REFUSED SKIN ASSESSMENT. NAME ARM BAND REMOVED. ALL BELONGINGS CHECKED AND SIGNED. HEALTH TEACHINGS/DISCHARGED INSTRUCTIONS GIVEN AND VERBALIZED UNDERSTANDING. PATIENT LEFT UNIT AMBULATORY, WAS PICKED UP BY FATHER AND MOTHER. NOT IN ANY SIGNS OF DISTRESS. CHARGE NURSE AWARE OF DISCHARGED.
[2019-05-30] MEDS ORDERED: Magnesium 1GM/D5W 100ML PREMIX 100 ML IV SCH (09:33)
--- NOTE | 2019-05-30 10:25 | NUR ---
business services vice president consult requested by Bryant Santoro MD for ETOH abuse. Pt is a 43 year old White male admitted to [facility] for elevated ammonia level. SW attempted to meet with pt to conduct social worker assessment but pt has since been discharged. No other services needed at this time.
== END 2019-05-30 09:40 | disposition home or self-care (01) | DRG 280 ==
LOC: ER 23:09 → TELE 05-30 01:36 → MED 05-30 09:36
PROVIDERS: ADMIT Internal Medicine; ATTEND Internal Medicine
DX: K70.40 Alcoholic hepatic failure without coma (principal); K70.30 Alcoholic cirrhosis of liver without ascites; K22.0 Achalasia of cardia; E78.5 Hyperlipidemia, unspecified; E87.6 Hypokalemia; Z91.19 Patient's noncompliance with other medical treatment and regimen; I10 Essential (primary) hypertension; F17.210 Nicotine dependence, cigarettes, uncomplicated; F10.10 Alcohol abuse, uncomplicated; Y90.4 Blood alcohol level of 80-99 mg/100 ml
CPT/HCPCS: 36415; 80053-TC; 82140-TC; 83735-TC; 85025-TC; 87081-TC; G0378; G0480; J7042